=== PATIENT | female | born 1980 ===

== ENCOUNTER 2017-04-14 17:30 | Emergency (ER) | payer SELFPAY ==
[2017-04-14 17:57] VITALS: BP 202/127
[2017-04-14] MEDS ORDERED: CATAPRES ONE (17:58)
[2017-04-14] MEDS ORDERED: CATAPRES PO ONE (18:02)
[2017-04-14 18:45] LABS: Basophils % (Auto) 0.6 % (0.0-1.8); Eosinophils % (Auto) 2.2 % (0.0-4.3); Hematocrit 50.4 % (30.3-42.9); Hemoglobin 16.6 gm/dl (10.1-14.3); INR 0.9 (0.87-1.13); Mean Corpuscular HGB Conc 33 % (30-34); Mean Corpuscular Hemoglobin 31 pg (28-32); Mean Corpuscular Volume 96 fl (79-97); Partial Thromboplastin Time 29.7 Sec. (24.2-36.6); Platelet Count 128 K/mm3 (140-440); Red Blood Count 5.27 M/mm3 (3.65-5.03); White Blood Count 10.9 K/mm3 (4.5-11.0)
[2017-04-14 18:57] LABS: Blood Urea Nitrogen 4 mg/dL (7-17); Calcium 9.6 mg/dL (8.4-10.2); Carbon Dioxide 23 mmol/L (22-30); Glucose 139 mg/dL (65-100)
--- NOTE | 2017-04-14 18:57 | Cat Scan Report ---
FINAL REPORT PROCEDURE: CT head without contrast. TECHNIQUE: Computerized tomography of the head was performed without contrast material. HISTORY: neuro deficits \T\lt; 6hrs or sx present upon awakening COMPARISON: No prior studies are available for comparison. FINDINGS: The ventricles are normal in size. The porras matter and white matter appear normal. There are no mass lesions. There is no intracranial hemorrhage. There are no signs of acute infarction. An MRI scan with diffusion-weighted imaging is the most sensitive means of detecting an early stroke. The calvarium appears intact. The mastoid air cells and visualized paranasal sinuses are well aerated. IMPRESSION: Normal study.
[2017-04-14 18:58] LABS: Anion Gap 21 mmol/L; Chloride 99.6 mmol/L (98-107); Potassium 4.3 mmol/L (3.6-5.0); Sodium 139 mmol/L (137-145)
== END 2017-04-14 20:20 | disposition left against medical advice (07) ==
LOC: ED 17:30
DX: R03.0 Elevated blood-pressure reading, without diagnosis of hypertension (principal); G43.909 Migraine, unspecified, not intractable, without status migrainosus; F41.9 Anxiety disorder, unspecified; F17.200 Nicotine dependence, unspecified, uncomplicated; Z88.0 Allergy status to penicillin; Z88.8 Allergy status to other drugs, medicaments and biological substances; Z53.21 Procedure and treatment not carried out due to patient leaving prior to being seen by health care provider
CPT/HCPCS: 36415; 70450; 80048; 84484; 85025; 85610; 85670; 85730; 93005; 93010